=== PATIENT | male | born 1945 | race Caucasian/White ===

== ENCOUNTER 2018-12-02 09:49 | Day surgery (SDC) | payer MEDICARE ==
[2018-11-30 12:12] VITALS: BMI 29.8
[~2018-12-02 09:49] MED LIST: LACTATED RINGERS 1,000 ML IV SCH; LIDOCAINE 1% 20 ML VIAL (10MG/ML) FOR IV START INTRADERMA PRN
[2018-12-02 10:29] VITALS: TEMP 97.6
[2018-12-02] MEDS ORDERED: LIDOCAINE 1% INJ 10MG/ML (20 ML MDV) ONE (11:34)
[2018-12-02] MEDS ORDERED: PROPOFOL 10 MG/ML 20 ML VIAL IV ONE (11:34)
--- NOTE | 2018-12-02 11:47 | P.PCN ---
Date of Procedure: 12/02/18 Procedure(s) Performed: BRIEF HISTORY: Patient is a 73-year-old pleasant male, scheduled for an elective colonoscopy as a part of evaluation of prior history of colon polyps. Last colonoscopy was 5 years ago. PROCEDURE PERFORMED: Colonoscopy. PREOPERATIVE DIAGNOSIS: History of colon polyps. IV sedation per Anesthesia. PROCEDURE: After informed consent was obtained, the patient, was brought into the endoscopy unit. IV sedation was administered by Anesthesia under continuous monitoring. Digital rectal examination was normal. Initially the Olympus CF-160 flexible video colonoscope was then inserted in the rectum, gradually advanced into the cecum without any difficulty. Careful examination was performed as the scope was gradually being withdrawn. Ileocecal valve and the appendiceal orifice were visualized and appeared normal. Prep was excellent. Mucosa of the cecum, ascending colon, transverse colon, descending colon, sigmoid colon, and rectum appeared normal. Scattered sigmoid diverticulosis. Retroflexion was performed in the rectum and no lesions were seen. The patient tolerated the procedure well. IMPRESSION: Normal-appearing colon from rectum to cecum with no evidence of colorectal neoplasia Scattered sigmoid diverticulosis. RECOMMENDATIONS: Findings of this examination were discussed with the patient as well as his family. He was advised to have a repeat surveillance colonoscopy in 5 years from now because of the prior history of colon polyps..
[2018-12-02 11:55] VITALS: RESP 16
[2018-12-02 12:10] VITALS: BP 126/75; PULSE 54
== END 2018-12-02 12:31 | disposition home or self-care (01) ==
LOC: ORWHC2ENDO 09:49
PROVIDERS: ATTEND Internal Medicine Gastroenterology
DX: Z12.11 Encounter for screening for malignant neoplasm of colon (principal); Z86.010 Personal history of colon polyps; K57.30 Diverticulosis of large intestine without perforation or abscess without bleeding; I10 Essential (primary) hypertension; Z79.899 Other long term (current) drug therapy; Z91.030 Bee allergy status; F17.200 Nicotine dependence, unspecified, uncomplicated; M48.00 Spinal stenosis, site unspecified; M19.90 Unspecified osteoarthritis, unspecified site; Z96.659 Presence of unspecified artificial knee joint
CPT/HCPCS: G0105; J2001; J2704; 45378

== ENCOUNTER 2020-08-09 07:56 | Day surgery (SDC) | payer MEDICARE, OTHER ==
[2020-08-07 10:42] VITALS: BMI 30.9
[~2020-08-09 07:56] MED LIST changes: -LIDOCAINE 1% 20 ML VIAL (10MG/ML) FOR IV START INTRADERMA PRN; +TETRACAINE 0.5% OPHTH (PF) DROPS 4 ML BTL OP PRN
[2020-08-09 09:13] VITALS: RESP 16; TEMP 97.8
[2020-08-09] MEDS: PHENYLEPHRINE 2.5% OPHTH DRP 2ML OP PRN ×3 (09:21→09:40)
[2020-08-09] MEDS: CYCLOPENTOLATE 1% OPHTH SOLN 2 ML BTL OP PRN ×3 (09:25→09:44)
[2020-08-09] MEDS ORDERED: LIDOCAINE 1% (10MG/ML) FOR IV START INTRADERMA ONE (09:39)
[2020-08-09] MEDS ORDERED: MIDAZOLAM 2 MG/2 ML VIAL ONE (10:12)
[2020-08-09] MEDS ORDERED: fentaNYL (PF) 50 MCG/ML 2 ML AMP ONE (10:12)
[2020-08-09] MEDS ORDERED: EPINEPHrine (PF) 0.3 ML in BALANCED SALT IRRIG SOLN COMB2 500 ML IRRIGATION ONE (10:17)
[2020-08-09] MEDS ORDERED: BALANCED SALT IRRIG SOLN COMB2 15 ML IRRIG.SOLN IRRIGATION ONE ×2 (10:20→10:28)
[2020-08-09] MEDS ORDERED: HYALURONATE SODIUM INTRAOCULAR 1 EACH SYRINGE (12MG/ML) INTRAOCULA ONE ×2 (10:20→10:28)
[2020-08-09] MEDS: MOXIFLOXACIN HCL 0.5% DROPS 3 ML BTL OP PRN ×2 (10:21→10:40)
[2020-08-09] MEDS: TIMOLOL 0.5% OPHTH DROPS 5 ML BTL OP PRN ×2 (10:21→10:39)
[2020-08-09] MEDS ORDERED: LIDOCAINE 1% (PF) 10MG/ML VIAL MISCELLANE ONE ×2 (10:21→10:28)
--- NOTE | 2020-08-09 10:44 | P.OP ---
Date of Procedure: 08/09/20 Preoperative Diagnosis: NS Postoperative Diagnosis: same Procedure(s) Performed: PIOL, OD Implants: [id number] 20.00 Anesthesia: MAC Surgeon: Grant Dye Pathology: none sent Condition: stable Disposition: same day Indications for Procedure: blurry vision Operative Findings: no complications
[2020-08-09 11:01] VITALS: BP 123/77; PULSE 60
--- NOTE | 2020-08-09 16:30 | OP ---
OPERATIVE REPORT DATE OF SURGERY: August 09, 2020. PROCEDURE PERFORMED: Phacoemulsification of cataract and intraocular lens implant of the right eye. AIR BAG BUFFER: @@ PREOPERATIVE DIAGNOSIS: Nuclear sclerosis. POSTOPERATIVE DIAGNOSIS: Nuclear sclerosis OPERATION: Clear cornea phacoemulsification of cataract OD (right) eye. ESTIMATED BLOOD LOSS: Zero. SPECIMEN TAKEN: None. NARRATIVE: After obtaining the appropriate consent, the patient was brought to the Operating Room where the patient was placed under cardiac monitoring and prepped and draped in the usual sterile manner. At the 11 o'clock position a 15 degree super sharp blade was used to create a paracentesis followed by instillation of 1% Xylocaine MPF 50:50 mix with BSS into the anterior chamber. This was followed by Amvisc to stabilize the anterior chamber. At the 9 o'clock position a self-sealing corneal flap incision was created using 2.8 mm caridad keratome. A cystotome was used to initiate a continuous tear capsulorrhexis which was completed with the Utrata forceps. A Binkhorst cannula was used to hydrodissect the lens nucleus followed by hydrodelineation. Phacoemulsification of the lens was performed utilizing phacochop in 15.44 seconds at 14% power. The remaining cortical material was removed using the irrigation aspiration mode followed by additional 1% Xylocaine MPF into the anterior chamber followed by viscoelastic to stabilize the capsular bag. A [employer] ZXR 00 20.0 diopter posterior chamber lens was placed into the capsular bag without difficulty. The remaining viscoelastic material was removed from the anterior chamber with the irrigation/aspiration. Balanced salt solution was used to normalize the intraocular pressure. The incision was checked for watertight integrity. The patient then received two drops of 0.5% timolol followed by two drops Vigamox, was lightly patched and shielded in the usual manner. There were no complications from the procedure. The patient tolerated the procedure well and was returned to recovery in good condition. MMODL / IJN: [id number] /
== END 2020-08-09 11:06 | disposition home or self-care (01) ==
LOC: OR 07:56
PROVIDERS: ATTEND Ophthalmology
DX: H25.13 Age-related nuclear cataract, bilateral (principal); H00.023 Hordeolum internum right eye, unspecified eyelid; H00.026 Hordeolum internum left eye, unspecified eyelid; H52.03 Hypermetropia, bilateral; H52.4 Presbyopia; H02.409 Unspecified ptosis of unspecified eyelid; H43.399 Other vitreous opacities, unspecified eye; I10 Essential (primary) hypertension; Z87.891 Personal history of nicotine dependence; Z98.890 Other specified postprocedural states; Z96.652 Presence of left artificial knee joint; Z83.511 Family history of glaucoma; H91.90 Unspecified hearing loss, unspecified ear; Z79.899 Other long term (current) drug therapy
CPT/HCPCS: 66984; V2632; V2788; J2250; J0171; J3010; J2001

== ENCOUNTER → 2020-10-12 | Outpatient (CLI) | payer MEDICARE ==
[2020-10-12 16:07] LABS: African American GFR (CKD) >90 (>60 ml/min/1.73 sqM); Blood Urea Nitrogen 22 mg/dL (9-20); Non-African American GFR(CKD) 86 (>60 ml/min/1.73 sqM)
--- NOTE | 2020-10-12 17:19 | CT ---
EXAMINATION TYPE: CT urogram wo/w con DATE OF EXAM: 10/12/2020 COMPARISON: None INDICATION: Gross hematuria. DLP: 2963 mGycm, Automated exposure control for dose reduction was used. CONTRAST: 100ml mL of Isovue 300. Study performed without Oral Contrast TECHNIQUE: Axial images were obtained from above the diaphragm to the pubic rami in the axial plane a t 5 mm thick sections. Reconstructed images are reviewed on the computer in the coronal plane. FINDINGS: Limited CT sections are obtained the lung bases. The lung bases are clear. CT ABDOMEN: Liver: Normal Spleen: Normal Pancreas: Normal Adrenal glands: The adrenal glands are normal. Gallbladder: Surgically absent Kidneys: No masses are evident. No hydronephrosis is present. Couple of tiny cortical renal cysts a re within the right kidney. Couple of small cortical renal cysts may be within the left kidney. There is a larger cyst within the mid medial aspect of the left kidney measuring 2.6 cm and 10 Hounsfield units. There is a punctate calcification within mid lateral left kidney. A couple of punctate calcifi cations may be within the anterior mid to lower left kidney. The largest left renal calcification at the inferior pole measuring 0.3 cm, series 6 image 40. No obstructing renal or ureteral stones are ev ident. Delayed images were obtained through the kidneys, which remain unremarkable. 3-D reconstructive images were performed through the renal collecting system and ureters to the urina ry bladder. Renal calyces infundibula and renal pelves appear normal. Ureters follow a normal caliber course and contour to the urinary bladder. See dictation regarding urinary bladder below. Aorta: Vascular calcification is within the aorta. Inferior vena cava: Normal. CT PELVIS: Loops of bowel within the abdomen and pelvis are normal. Note is made of multiple diverticuli. Thi s study is performed without oral contrast limiting bowel evaluation. Appendix: Normal as visualized. Urinary bladder: Urinary bladder with contrast has multiple filling defects. These appear to arise fr om the anterior inferior urinary bladder wall. The largest solid masses appear to measure 1.7 cm on t he right and 1.5 cm anteriorly. Findings are suspicious for neoplasm, cystoscopy can be performed. No suspicious pelvic adenopathy is evident. No clear extension beyond urinary bladder wall is identifie d. No metastatic lesions are identified. Genitourinary structures: Prostate is prominent. This appears to be away from the urinary bladder wal l thickening and prostate invasion of the urinary bladder is considered unlikely. Osseous structures: No suspicious lytic or sclerotic lesions. IMPRESSIONS: 1. Anterior inferior urinary bladder wall masses suspicious for neoplasm. 2. Nonobstructing punctate left renal stones without obstruction
== END | disposition home or self-care (01) ==
LOC: RADCTMAIN 15:30
PROVIDERS: ATTEND Urology
DX: R31.0 Gross hematuria (principal); N20.0 Calculus of kidney
CPT/HCPCS: 82565; 84520; 74178; 36415; 74400; Q9967

== ENCOUNTER → 2021-04-17 | Outpatient (CLI) | payer MEDICARE ==
[2021-04-17 12:18] LABS: Basophils % (A) 1 %; Eosinophils # (A) 0.4 k/uL (0-0.7); Eosinophils % (A) 5 %; HCT 53.8 % (39.0-53.0); HGB 18.9 gm/dL (13.0-17.5); Lymphocytes # (A) 1.3 k/uL (1.0-4.8); Lymphocytes % (A) 17 %; MCHC 35.2 g/dL (31.0-37.0); MCV 93.7 fL (80.0-100.0); Mean Platelet Volume 7.5; Monocytes # (A) 0.6 k/uL (0-1.0); Monocytes % (A) 7 %; Neutrophils # (A) 5.2 k/uL (1.3-7.7); Neutrophils % (A) 68 %; Platelet Count 231 k/uL (150-450); RBC 5.74 m/uL (4.30-5.90); RDW 12.9 % (11.5-15.5); WBC 7.7 k/uL (3.8-10.6)
[2021-04-17 12:20] LABS: ALT 28 U/L (4-49); AST 27 U/L (17-59); African American GFR (CKD) >90 (>60 ml/min/1.73 sqM); Alkaline Phosphatase 70 U/L (38-126); Anion Gap 8 mmol/L; Blood Urea Nitrogen 19 mg/dL (9-20); Calcium 9.4 mg/dL (8.4-10.2); Carbon Dioxide 24 mmol/L (22-30); Chloride 102 mmol/L (98-107); Glucose 106 mg/dL (74-99); Non-African American GFR(CKD) 87 (>60 ml/min/1.73 sqM); Sodium 134 mmol/L (137-145); Total Bilirubin 0.5 mg/dL (0.2-1.3); Total Protein 6.8 g/dL (6.3-8.2)
[2021-04-17 12:29] LABS: Potassium 4.6 mmol/L (3.5-5.1)
[2021-04-17 12:42] LABS: Appearance,Urine Clear (Clear); Bacteria,Urine Rare /hpf; Bilirubin,Urine Negative (Negative); Blood,Urine Negative (Negative); Color,Urine Yellow; Glucose,Urine (UA) Negative (Negative); Hyaline Casts,Urine 1 /lpf (0-2); Ketones,Urine Negative (Negative); Leukocyte Esterase,Urine Moderate (Negative); Mucus,Urine Occasional /hpf; Nitrite,Urine Positive (Negative); PH, Urine 5.5 (5.0-8.0); Protein,Urine Negative (Negative); RBC,Urine 2 /hpf (0-5); Specific Gravity,Urine 1.018 (1.001-1.035); Urobilinogen,Urine <2.0 mg/dL (<2.0); WBC,Urine 16 /hpf (0-5)
== END | disposition home or self-care (01) ==
LOC: LABPAT 10:21
PROVIDERS: ATTEND Urology
DX: Z01.812 Encounter for preprocedural laboratory examination (principal); C67.9 Malignant neoplasm of bladder, unspecified; N39.0 Urinary tract infection, site not specified
CPT/HCPCS: 80053; 81001; 85025; 87086

== ENCOUNTER 2021-04-25 07:16 | Day surgery (SDC) | payer MEDICARE ==
[2021-04-20 15:35] VITALS: BMI 30.2
--- NOTE | 2021-04-24 18:04 | P.GSHP ---
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 He is sp 6 bcg treatments. He had a fu cysto identifying recurrent bladder ca, He comes for a turbt with retrograde pyelograms. - Constitutional Constitutional: Denies chills, Denies fever - EENT Eyes: denies blurred vision, denies pain Ears, nose, mouth and throat: Denies headache, Denies sore throat - Cardiovascular Cardiovascular: Denies chest pain, Denies shortness of breath - Respiratory Respiratory: Denies cough, Denies 7 - Gastrointestinal Gastrointestinal: Denies abdominal pain, Denies diarrhea, Denies nausea, Denies vomiting - Genitourinary (Female) Genitourinary: Denies dysuria, Denies hematuria - Genitourinary (Male) Genitourinary: Denies dysuria, Denies hematuria - Musculoskeletal Musculoskeletal: Denies myalgias - Integumentary Integumentary: Denies pruritus, Denies rash - Neurological Neurological: Denies numbness, Denies weakness - Psychiatric Psychiatric: Denies anxiety, Denies depression - Endocrine Endocrine: Denies fatigue, Denies weight change Past Medical History Past Medical History: Cancer, Eye Disorder, Hypertension, Musculoskeletal Disorder, Osteoarthritis (OA) Additional Past Medical History / Comment(s): Hx ocassional arrythmia, no recent problems. Spinal stenosis, bilateral cataracts, bladder cancer. History of Any Multi-Drug Resistant Organisms: None Reported Past Surgical History: Bladder Surgery, Joint Replacement Additional Past Surgical History / Comment(s): Left knee replacement, wisdom teeth extracted, Transurethral Resection of Bladder Tumor. Past Anesthesia/Blood Transfusion Reactions: No Reported Reaction Past Psychological History: No Psychological Hx Reported Smoking Status: Former smoker Past Alcohol Use History: Rare Additional Past Alcohol Use History / Comment(s): Quit smoking in 1979. Past Drug Use History: None Reported - Past Family History Brother(s) Additional Family Medical History / Comment(s): Brain bleed. Mother Family Medical History: Cancer Additional Family Medical History / Comment(s): Leukemia. Medications and Allergies Home Medications Medication Instructions Recorded Confirmed Type atenoloL 25 mg PO BID 11/30/18 04/20/21 History Allergies Allergy/AdvReac Type Severity Reaction Status Date / Time bee venom protein (honey bee) Allergy Swelling Verified 04/20/21 15:22 Surgical - Exam - General well developed, well nourished, no distress - Eyes normal ocular movement, no icteric - ENT no hearing loss, no congestion - Neck no masses, trachea midline - Respiratory normal respiratory effort, clear to auscultation - Abdomen Abdomen: soft, non tender, no guarding, no rigid, no rebound - Genitourinary normal penis with no external lesions, testicles present - Integumentary no rash, no abnormal pigmentation - Neurologic no disoriented, no combative - Psychiatric oriented to time, oriented to person, oriented to place, speech is normal, memory intact Assessment and Plan Assessment: Impression: Bladder ca., recurrent Plan: Turbt with retrograde pyelograms
[~2021-04-25 07:16] MED LIST changes: +HYDROmorphone 0.5 MG/0.5 ML SYRINGE IVP PRN; +LIDOCAINE 1% (10MG/ML) FOR IV START INTRADERMA PRN; +ONDANSETRON 4 MG/2 ML VIAL IVP PRN; -TETRACAINE 0.5% OPHTH (PF) DROPS 4 ML BTL OP PRN
[2021-04-25] MEDS ORDERED: LIDOCAINE 1% INJ 10MG/ML (20 ML MDV) ONE (08:27)
[2021-04-25] MEDS ORDERED: ePHEDrine 50 MG/ML 1 ML AMP ONE (08:27)
[2021-04-25] MEDS ORDERED: .fentaNYL (PF) 50 MCG/ML 2 ML AMP ONE (08:27)
[2021-04-25] MEDS ORDERED: PROPOFOL 10 MG/ML 20 ML VIAL IV ONE (08:27)
[2021-04-25] MEDS ORDERED: SUCCINYLCHOLINE CHLORIDE 100 MG/5 ML SYR IV ONE (08:27)
[2021-04-25] MEDS ORDERED: MIDAZOLAM 2 MG/2 ML VIAL ONE (08:27)
[2021-04-25] MEDS ORDERED: IOPAMIDOL-370 50ML BTL MISCELLANE ONE (08:50)
--- NOTE | 2021-04-25 09:10 | FL ---
EXAMINATION TYPE: FL urography retrograde DATE OF EXAM: 04/25/2021 COMPARISON: NONE HISTORY: Fluoroscopy time. Fluoroscopy was provided to the referring clinician.
[2021-04-25 09:47] VITALS: TEMP 97.3
[2021-04-25 09:48] VITALS: RESP 16
--- NOTE | 2021-04-25 09:48 | P.OP ---
Date of Procedure: 04/25/21 Preoperative Diagnosis: Recurrent bladder cancer Postoperative Diagnosis: Same Procedure(s) Performed: Cystoscopy, bilateral retrograde pyelograms, left ureteroscopy, TURBT (medium 2.5 cm) Anesthesia: ADRIANE Surgeon: Niels Hillman Estimated Blood Loss (ml): 25 Pathology: other (Bladder tumor) Condition: stable Disposition: PACU Indications for Procedure: The patient is 75. 6 months ago he had resection of grade 3 T1 carcinomas of the bladder. He underwent intravesical chemotherapy 6 with BCG. Follow-up cystoscopy identified multiple superficial-appearing bladder cancers primarily at the bladder neck and anterior bladder wall. Total diameter is over 2-1/2 cm. He comes for resection of these tumors and retrograde pyelograms. Description of Procedure: The patient is brought to the operating suite. He is given a general endotracheal anesthesia. He's placed lithotomy position with a sterile prep and drape. Cystoscopy Foroblique lens and 22-Tristanian sheath identifies a normal anterior urethra. Prostatic urethra shows minimal obstruction. The bladder mary inspected. There is tumors in the left anterior bladder wall from 12 to 2:00. The right anterior bladder wall from 10 to 11:00. Multiple other tumors in the anterior bladder wall and posterior bladder wall. With a cone-tip catheter bilateral retrograde pyelograms were performed. The left ureters of normal course of. There is some narrowing of the ureter as it enters intravesical tunnel. The ureter drains appropriately. The rest ureters of normal course and caliber. There is no collecting system defect appeared to wash the ureter drained but the narrowing persists Right retrograde pyelograms performed ureter appears almost identical to the left. There is slight blunting of the upper pole calyces. There is some narrowing of the ureter as it enters intravesical tunnel. I passed the semirigid ureteroscope on the left side into the ureter. I identify where the narrowed areas and is just gives a compression consistent with insertion rather than tumor formation. I then introduced the Hernandez resectoscope with 25-Tristanian sheath into the bladder. With the Hernandez resectoscope 25-Tristanian loop set on the tumors and then cauterized thoroughly the bases. I evacuate the tumor from the bladder. An 18-Tristanian Sosa catheters placed. Urine is clear to light pink. The patient awake and returned recovery room good condition Impression: recurrent bladder cancer is identified and resected. The patient will be discharged home upon recovery and follow in the office in one week. Pending the pathology report as to further recommendations.
[2021-04-25 11:14] VITALS: BP 127/87; PULSE 58
== END 2021-04-25 11:16 | disposition home or self-care (01) ==
LOC: OR 07:16
PROVIDERS: ATTEND Urology
DX: C67.9 Malignant neoplasm of bladder, unspecified (principal)
CPT/HCPCS: 52005; 88307; 74420; C1758; J2250; J2405; J0690; J2001; J3010; J0330; J2704; J1170; Q9967

== ENCOUNTER → 2022-02-12 | Outpatient (CLI) | payer MEDICARE | END | disposition home or self-care (01) | LOC: LABWHC1 15:50 | PROVIDERS: ATTEND Urology | DX: R97.20 Elevated prostate specific antigen [PSA] (principal) | CPT/HCPCS: 36415; 84153 ==

== ENCOUNTER 2023-04-20 16:39 | Emergency (ER) | payer MEDICARE ==
--- NOTE | 2023-04-20 18:18 | ED ---
Abdominal Pain HPI - General Source: patient, RN notes reviewed Mode of arrival: ambulatory Limitations: no limitations <Janna Machado - Last Filed: 04/29/23 18:14> - History of Present Illness MD Complaint: abdominal pain, flank pain Onset/Timin -: days(s) Location: L flank Radiation: none Severity: moderate Quality: aching Consistency: constant Improves With: nothing Worsens With: nothing Associated Symptoms: other (Frequency) <Thiago Bridges - Last Filed: 05/07/23 15:05> - General Chief Complaint: Abdominal Pain Stated Complaint: post op pain Time Seen by Provider: 04/20/23 18:16 - History of Present Illness Initial Comments: Patient is a 77 from an presented ER chief complaint of left flank plain. Patient underwent a surgery by Dr. Fernandez on Friday and pain started on Friday night/Friday. Patient endorses chills but denies fevers. (Janna Machado) 's patient is a 77-year-old man presenting with left flank pain that is been getting worse since Friday evening. The patient as in the quick note states that he had surgery with Dr. Fernandez. He states he thinks that a took something off of his bladder. He also had a scope up into the left kidney. Patient states that he has not noticed systemic symptoms. No fever or chills. No cough, dyspnea, palpitations. (Thiago Bridges) - Related Data Home Medications Medication Instructions Recorded Confirmed atenoloL 25 mg PO BID 11/30/18 04/25/21 Previous Rx's Medication Instructions Recorded Docusate [Colace] 100 mg PO BID #20 capsule 04/21/23 HYDROcodone/APAP 5-325MG [[place] 1 tab PO Q4HR PRN 3 Days #18 tab 04/21/23 5-325] Allergies Allergy/AdvReac Type Severity Reaction Status Date / Time bee venom protein (honey bee) Allergy Swelling Verified 04/20/23 17:07 Review of Systems ROS Other: All systems not noted in ROS Statement are negative. <Janna Machado - Last Filed: 04/29/23 18:14> ROS Other: All systems not noted in ROS Statement are negative. Constitutional: Denies: fever, chills, weakness Respiratory: Denies: cough, dyspnea Cardiovascular: Denies: chest pain, palpitations, edema Gastrointestinal: Reports: abdominal pain, constipation. Denies: nausea, vomiting, diarrhea Genitourinary: Denies: dysuria, frequency, hematuria, testicular pain, testi cular mass Musculoskeletal: Denies: back pain Skin: Denies: rash Neurological: Denies: headache, weakness <Thiago Bridges - Last Filed: 05/07/23 15:05> ROS Statement: Those systems with pertinent positive or pertinent negative responses have been documented in the HPI. Past Medical History Past Medical History: Eye Disorder, Hypertension, Musculoskeletal Disorder, Osteoarthritis (OA) Additional Past Medical History / Comment(s): Hx ocassional arrythmia, no recent problems. Spinal stenosis, fazal cataracts History of Any Multi-Drug Resistant Organisms: None Reported Past Surgical History: Joint Replacement Additional Past Surgical History / Comment(s): Left knee replacement, wisdom teeth extracted, cystoscopy Past Anesthesia/Blood Transfusion Reactions: No Reported Reaction Past Psychological History: No Psychological Hx Reported Smoking Status: Former smoker Past Alcohol Use History: Rare Past Drug Use History: None Reported - Past Family History Brother(s) Additional Family Medical History / Comment(s): Brain bleed. Mother Additional Family Medical History / Comment(s): Leukemia. <Janna Machado - Last Filed: 04/29/23 18:14> General Exam Limitations: no limitations <JudsonJanna rondon - Last Filed: 04/29/23 18:14> General appearance: alert, in no apparent distress Head exam: Present: atraumatic, normocephalic Eye exam: Present: normal appearance. Absent: scleral icterus, conjunctival injection ENT exam: Present: normal oropharynx Neck exam: Present: normal inspection Respiratory exam: Present: normal lung sounds bilaterally. Absent: respiratory distress, wheezes, rales, rhonchi, stridor Cardiovascular Exam: Present: regular rate, normal rhythm, normal heart sounds. Absent: systolic murmur, diastolic murmur, rubs, gallop GI/Abdominal exam: Present: soft. Absent: distended, tenderness, guarding, rebound, rigid, mass Extremities exam: Present: normal inspection, normal capillary refill. Absent: pedal edema, calf tenderness Back exam: Present: normal inspection. Absent: CVA tenderness (R), CVA tenderness (L) Neurological exam: Present: alert Skin exam: Present: warm, dry, intact, normal color. Absent: rash <Thiago Bridges - Last Filed: 05/07/23 15:05> - General Exam Comments Initial Comments: Visual Physical Exam Vital signs reviewed General: Well-appearing, nontoxic, no acute distress. Head: Normocephalic, atraumatic Eyes: PERRLA, EOMI ENT: Airway patent Chest: Nonlabored breathing Skin: No visual rash, normal skin tone Neuro: Alert and oriented 3 Musculoskeletal: No gross abnormalities (Janna Machado) Course Vital Signs 04/20/23 04/20/23 04/21/23 17:01 22:20 01:53 Temperature 98.0 F 98.5 F Pulse Rate 67 61 68 Respiratory 22 20 18 Rate Blood Pressure 153/87 177/93 154/79 O2 Sat by Pulse 94 L Oximetry Medical Decision Making <Janna Machado - Last Filed: 04/29/23 18:14> - Lab Data Result diagrams: 04/20/23 18:35 04/20/23 20:45 <Thiago Bridges - Last Filed: 05/07/23 15:05> - Medical Decision Making I performed the quick note portion of the exam. Electronically signed by Janna Machado PA-C (Janna Machado) Was pt. sent in by a medical professional or institution (KLYE Harrington, TRAM INSPECTOR, urgent care, hospital, or half-way...) When possible be specific @ -[No] Did you speak to anyone other than the patient for history (EMS, parent, family, police, friend...)? What history was obtained from this source @ -[No] Did you review nursing and triage notes (agree or disagree)? Why? @ -[I reviewed and agree with nursing and triage notes] Were old charts reviewed (outside hosp., previous admission, EMS record, old EKG, old radiological studies, urgent care reports/EKG's, half-way records)? Report findings @ -[No old charts were reviewed] Differential Diagnosis (chest pain, altered mental status, abdominal pain women, abdominal pain men, vaginal bleeding, weakness, fever, dyspnea, syncope, headache, dizziness, GI bleed, back pain, seizure, CVA, palpatations, mental health, musculoskeletal)? @ -[Differential Abdominal Pain Men: Appendicitis, cholecystitis, diverticulosis, ischemic bowel, pancreatitis, hepatitis, UTI, gastroenteritis, AAA, incarcerated hernia, bowel obstruction, constipation, inflammatory bowel, hepatitis, peptic ulcer disease, splenic infarction, perforated viscus, testicular torsion, this is not meant to be an all-inclusive list EKG interpreted by me (3pts min.). @ -[As above] X-rays interpreted by me (1pt min.). @ -[None done] CT interpreted by me (1pt min.). @ -[None done] U/S interpreted by me (1pt. min.). @ -[None done] What testing was considered but not performed or refused? (CT, X-rays, U/S, labs)? Why? @ -[None] What meds were considered but not given or refused? Why? @ -[None] Did you discuss the management of the patient with other professionals (ehsan bush i.e. , PA, TRAM INSPECTOR, lab, RT, psych nurse, community mental health social worker, catering associate, teacher, president and chief executive officer, manager case)? Give summary @ -[No] Was smoking cessation discussed for >3mins.? @ -[No] Was critical care preformed (if so, how long)? @ -[No] Were there social determinants of health that impacted care today? How? (Homelessness, low income, unemployed, alcoholism, drug addiction, transpor tation, low edu. Level, literacy, decrease access to med. care, residential, rehab)? @ -[No] Was there de-escalation of care discussed even if they declined (Discuss DNR or withdrawal of care, Hospice)? DNR status @ -[No] What co-morbidities impacted this encounter? (DM, HTN, Smoking, COPD, CAD, Cancer, CVA, ARF, Chemo, Hep., AIDS, mental health diagnosis, sleep apnea, morbid obesity)? @ -[None] Was patient admitted / discharged? Hospital course, mention meds given and route, prescriptions, significant lab abnormalities, going to OR and other pertinent info. @ -[Patient is 77-year-old man with flank pain after having had urologic procedure. The patient had workup including computed tomography scan that does show some hydroureter. His suspected that this may be related to procedure that he had in the clinic. Patient's feeling better on treatment here he will follow with the urologist. Discussed appropriate return parameters Undiagnosed new problem with uncertain prognosis? @ -[No] Drug Therapy requiring intensive monitoring for toxicity (Heparin, Nitro, Insulin, Cardizem)? @ -[No] Were any procedures done? @ -[No] Diagnosis/symptom? @ -[Acute flank pain Acute hydroureter Acute, or Chronic, or Acute on Chronic? @ -Acute Uncomplicated (without systemic symptoms) or Complicated (systemic symptoms)? @ -[Uncomplicated Side effects of treatment? @ -[No] Exacerbation, Progression, or Severe Exacerbation? @ -[No] Poses a threat to life or bodily function? How? (Chest pain, USA, MS, pneumonia, PE, COPD, DKA, ARF, appy, cholecystitis, CVA, Diverticulitis, Homicidal, Suicidal, threat to staff... and all critical care pts) @ -[No] (Thiago Bridges) - Lab Data Lab Results 04/20/23 04/20/23 04/20/23 Range/Units 18:35 18:35 18:35 WBC 10.8 H (3.8-10.6) k/uL RBC 5.67 (4.30-5.90) m/uL Hgb 18.1 H (13.0-17.5) gm/dL Hct 53.3 H (39.0-53.0) % MCV 94.0 (80.0-100.0) fL MCH 31.9 (25.0-35.0) pg MCHC 33.9 (31.0-37.0) g/dL RDW 12.7 (11.5-15.5) % Plt Count 220 (150-450) k/uL MPV 7.8 Sodium (137-145) mmol/L Potassium (3.5-5.1) mmol/L Chloride (98-107) mmol/L Carbon Dioxide (22-30) mmol/L Anion Gap mmol/L BUN (9-20) mg/dL Creatinine (0.66-1.25) mg/dL Est GFR (CKD-EPI)AfAm (>60 ml/min/1.73 sqM) Est GFR (CKD-EPI)NonAf (>60 ml/min/1.73 sqM) Glucose (74-99) mg/dL Plasma Lactic Acid Kevin 1.5 (0.7-2.0) mmol/L Calcium (8.4-10.2) mg/dL Total Bilirubin (0.2-1.3) mg/dL AST (17-59) U/L ALT (4-49) U/L Alkaline Phosphatase (38-126) U/L Total Protein (6.3-8.2) g/dL Albumin (3.5-5.0) g/dL Urine Color Yellow Urine Appearance Cloudy (Clear) Urine pH 5.0 (5.0-8.0) Ur Specific [place] 1.020 (1.001-1.035) Urine Protein Negative (Negative) Urine Glucose (UA) Negative (Negative) Urine Ketones Negative (Negative) Urine Blood Large H (Negative) Urine Nitrite Negative (Negative) Urine Bilirubin Negative (Negative) Urine Urobilinogen <2.0 (<2.0) mg/dL Ur Leukocyte Esterase Negative (Negative) Urine RBC >182 H (0-5) /hpf Urine WBC 8 H (0-5) /hpf Ur Squamous Epith Cells 1 (0-4) /hpf Urine Mucus Rare H (None) /hpf 04/20/23 Range/Units 20:45 WBC (3.8-10.6) k/uL RBC (4.30-5.90) m/uL Hgb (13.0-17.5) gm/dL Hct (39.0-53.0) % MCV (80.0-100.0) fL MCH (25.0-35.0) pg MCHC (31.0-37.0) g/dL RDW (11.5-15.5) % Plt Count (150-450) k/uL MPV Sodium 135 L (137-145) mmol/L Potassium 4.9 (3.5-5.1) mmol/L Chloride 102 (98-107) mmol/L Carbon Dioxide 23 (22-30) mmol/L Anion Gap 10 mmol/L BUN 18 (9-20) mg/dL Creatinine 0.84 (0.66-1.25) mg/dL Est GFR (CKD-EPI)AfAm >90 (>60 ml/min/1.73 sqM) Est GFR (CKD-EPI)NonAf 85 (>60 ml/min/1.73 sqM) Glucose 118 H (74-99) mg/dL Plasma Lactic Acid Kevin (0.7-2.0) mmol/L Calcium 9.7 (8.4-10.2) mg/dL Total Bilirubin 1.0 (0.2-1.3) mg/dL AST 42 (17-59) U/L ALT 27 (4-49) U/L Alkaline Phosphatase 80 (38-126) U/L Total Protein 7.5 (6.3-8.2) g/dL Albumin 4.4 (3.5-5.0) g/dL Urine Color Urine Appearance (Clear) Urine pH (5.0-8.0) Ur Specific [place] (1.001-1.035) Urine Protein (Negative) Urine Glucose (UA) (Negative) Urine Ketones (Negative) Urine Blood (Negative) Urine Nitrite (Negative) Urine Bilirubin (Negative) Urine Urobilinogen (<2.0) mg/dL Ur Leukocyte Esterase (Negative) Urine RBC (0-5) /hpf Urine WBC (0-5) /hpf Ur Squamous Epith Cells (0-4) /hpf Urine Mucus (None) /hpf Disposition <Janna Machado - Last Filed: 04/29/23 18:14> Is patient prescribed a controlled substance at d/c from ED?: Yes <Thiago Bridges - Last Filed: 05/07/23 15:05> Clinical Impression: Flank pain, Hydroureter, left Disposition: HOME SELF-CARE Condition: Good Prescriptions: Docusate [Colace] 100 mg PO BID #20 capsule HYDROcodone/APAP 5-325MG [[place] 5-325] 1 tab PO Q4HR PRN 3 Days #18 tab PRN Reason: Pain Referrals: Freeman Varela MD [Primary Care Provider] - 1-2 days Niels Hillman MD [STAFF PHYSICIAN] - 1-2 days
[2023-04-20 19:01] LABS: HCT 53.3 % (39.0-53.0); HGB 18.1 gm/dL (13.0-17.5); MCH 31.9 pg (25.0-35.0); MCHC 33.9 g/dL (31.0-37.0); Mean Platelet Volume 7.8; Platelet Count 220 k/uL (150-450); RBC 5.67 m/uL (4.30-5.90); RDW 12.7 % (11.5-15.5); WBC 10.8 k/uL (3.8-10.6)
[2023-04-20 19:43] LABS: Appearance,Urine Cloudy (Clear); Color,Urine Yellow; Protein,Urine Negative (Negative)
[2023-04-20 19:44] LABS: Bilirubin,Urine Negative (Negative); Blood,Urine Large (Negative); Glucose,Urine (UA) Negative (Negative); Ketones,Urine Negative (Negative); Leukocyte Esterase,Urine Negative (Negative); Nitrite,Urine Negative (Negative); Urobilinogen,Urine <2.0 mg/dL (<2.0)
[2023-04-20 19:49] LABS: Mucus,Urine Rare /hpf; RBC,Urine >182 /hpf (0-5); Squamous Epithelial Cell,Urine 1 /hpf (0-4); WBC,Urine 8 /hpf (0-5)
[2023-04-20 21:08] LABS: Sodium 135 mmol/L (137-145)
[2023-04-20 21:09] LABS: ALT 27 U/L (4-49); African American GFR (CKD) >90 (>60 ml/min/1.73 sqM); Albumin 4.4 g/dL (3.5-5.0); Anion Gap 10 mmol/L; Blood Urea Nitrogen 18 mg/dL (9-20); Calcium 9.7 mg/dL (8.4-10.2); Carbon Dioxide 23 mmol/L (22-30); Chloride 102 mmol/L (98-107); Glucose 118 mg/dL (74-99); Non-African American GFR(CKD) 85 (>60 ml/min/1.73 sqM); Total Protein 7.5 g/dL (6.3-8.2)
[2023-04-20 21:37] LABS: AST 42 U/L (17-59); Alkaline Phosphatase 80 U/L (38-126); Potassium 4.9 mmol/L (3.5-5.1)
[2023-04-20] MEDS ORDERED: MORPHINE SULFATE 4 MG/ML SYRINGE IV STA (22:29)
[2023-04-20 23:14] VITALS: TEMP 98.5
--- NOTE | 2023-04-21 | CT ---
EXAM: CT Abdomen and Pelvis Without Intravenous Contrast CLINICAL HISTORY: ITS.REASON CT Reason: L flank pain TECHNIQUE: Axial computed tomography images of the abdomen and pelvis without intravenous contrast. CTDI is 10.4 mGy and DLP is 624 mGy-cm. This CT exam was performed using one or more of the following dose reduction techniques: automated exposure control, adjustment of the mA and/or kV according to patient size, and/or use of iterative reconstruction technique. COMPARISON: No relevant prior studies available. FINDINGS: Lung bases: Atelectasis at the lung bases. ABDOMEN: Liver: Unremarkable. Gallbladder and bile ducts: Cholecystectomy. No ductal dilation. Pancreas: Unremarkable. No ductal dilation. Spleen: Unremarkable. No splenomegaly. Adrenals: Unremarkable. No mass. Kidneys and ureters: Bilateral nonobstructing renal calculi measuring approximately 3-4 mm in size. No obstructive uropathy. Mild fullness of the LEFT renal collecting system with mild periureteral fat stranding, concerning for recently passed stone. Stomach and bowel: Diverticulosis, without acute diverticulitis. No small bowel obstruction. No free intraperitoneal air. PELVIS: Appendix: No findings to suggest acute appendicitis. Bladder: Mild wall thickening of the urinary bladder with surrounding inflammation, concerning for mild UTI. No stones. Reproductive: Enlarged prostate gland, measures 5.1 cm. ABDOMEN and PELVIS: Intraperitoneal space: Unremarkable. No free air. No significant fluid collection. Bones/joints: Degenerative changes of the spine. No acute fracture. No dislocation. Soft tissues: Unremarkable. Vasculature: Atherosclerotic changes of the aorta. No abdominal aortic aneurysm. Lymph nodes: Unremarkable. No enlarged lymph nodes. IMPRESSION: 1. Mild wall thickening of the urinary bladder with surrounding inflammation, concerning for mild UTI. 2. Mild fullness of the LEFT renal collecting system with mild periureteral fat stranding, concerning for recently passed stone. 3. Bilateral nonobstructing renal calculi measuring approximately 3-4 mm in size. No current obstructive uropathy.
[2023-04-21] MEDS ORDERED: VANCOMYCIN IV PER PHARMACY 1 EACH MISC MISCELLANE PRN (01:18)
[2023-04-21] MEDS ORDERED: MORPHINE SULFATE 4 MG/ML SYRINGE IV PRN (01:19)
[2023-04-21] MEDS ORDERED: MORPHINE SULFATE 4 MG/ML SYRINGE IV STA (01:36)
[2023-04-21 01:55] VITALS: BP 154/79; PULSE 68; RESP 18
[2023-04-21] MEDS ORDERED: VANCOMYCIN 1,250 MG in SODIUM CHLORIDE 0.9% 250 ML IVPB ONE (02:30)
== END 2023-04-21 01:53 | disposition home or self-care (01) ==
LOC: EC 16:39
DX: N13.4 Hydroureter (principal); I10 Essential (primary) hypertension; Z87.891 Personal history of nicotine dependence; Z91.030 Bee allergy status; Z79.899 Other long term (current) drug therapy
CPT/HCPCS: 36415; 80053; 83605; 85027; 81001; 74176; 99284; 96374; 96376; J2270 ×2

== ENCOUNTER → 2024-11-26 | Outpatient (CLI) | payer MEDICARE ==
[2024-11-26 15:28] LABS: ALT 21 U/L (10-49); AST 26 U/L (14-35); Cholesterol 144.00 mg/dL (0.00-200.00); HDL Cholesterol 52.30 mg/dL (40.00-60.00); LDL Cholesterol,Calculated 81.6 mg/dL (0.0-131.0); Triglycerides 50.60 mg/dL (0.00-149.00); VLDL Calculation 10.12 mg/dL (5.00-40.00)
== END | disposition home or self-care (01) ==
LOC: LABWHC1 09:01
PROVIDERS: ATTEND Internal Medicine Interventional Cardiology
DX: E78.2 Mixed hyperlipidemia (principal)
CPT/HCPCS: 36415; 80061; 84450; 84460